=== PATIENT | female | born 1960 | race Two or more races ===

== ENCOUNTER 2019-11-20 13:36 | Outpatient (CLI) | payer OTHER ==
[~2019-11-20] VITALS: Ht 157.5 cm; Wt 57.2 kg
[2019-11-20 14:00] VITALS: BP 125/65
--- NOTE | 2019-11-20 18:15 | Consultation ---
DATE OF CONSULTATION: 11/20/2019 GASTROENTEROLOGY CONSULTATION CONSULTING PHYSICIAN: Wagner Gregory M.D. REFERRING PHYSICIAN: Dwayne Maurer M.D. TIME OF EVALUATION: 1400. HISTORY OF PRESENT ILLNESS: This is a 59-year-old female patient with a past medical history of bradycardia presents today with complaint of right lower quadrant pain. The patient denies any constipation or diarrhea. The patient denies any nausea or vomiting. The patient stated that she has a family history of colon cancer in which her brother was recently diagnosed with colon cancer stage IV and currently on chemotherapy. She was instructed by her primary care physician to obtain a routine colonoscopy because of this. The patient is alert and oriented x4. There are no signs of abuse or neglect. The patient is not a fall risk. The patient's last colonoscopy was stated to be approximately 5 years ago. PAST MEDICAL HISTORY: Bradycardia. PAST SURGICAL HISTORY: Cholecystectomy. MEDICATIONS: The patient is on vitamin D3, Q10, . FAMILY HISTORY: Brother has colon cancer. Family history of stroke. SOCIAL HISTORY: The patient has no ETOH use, tobacco, or drug use. PHYSICAL EXAMINATION: VITAL SIGNS: Temperature is 97.4, blood pressure 125/65, pulse 54, oxygen saturation is 98, height 5 feet 2 inches, weight 126.4 pounds. The patient denies any weight loss. GENERAL: No apparent distress. Alert and oriented x4. Ambulatory. HEENT: Head is normocephalic, atraumatic. PERRLA. NECK: Supple. CARDIOVASCULAR: Bradycardic. LUNGS: Clear bilaterally to auscultation. No apparent distress. ABDOMEN: Soft. Mild tenderness right lower quadrant. Nondistended. No rebound or guarding noted. EXTREMITIES: No pedal edema noted. No cyanosis. No clubbing noted. ASSESSMENT: This is a 59-year-old female patient with family history of colon cancer who presents today for a routine colonoscopy. 1. Family history of colon cancer. 2. Abdominal pain. 3. History of cholecystectomy. 4. Bradycardia. PLAN: Plan is to schedule the patient for colonoscopy. The patient will require prior authorization prior scheduling. Colonoscopy preparation and prepping was instructed and acknowledged by the patient. We will contact the patient in regards to the colonoscopy once authorization is approved. I would like to thank Dr. Maurer for this consultation. Wagner Gregory M.D. [facility] DR: KRIS JOB#: [id number] CC:
[2019-11-21] MEDS ORDERED: VITAMIN D-32000 UNI2 PO (08:20)
[2019-11-21] MEDS ORDERED: COQ-10100 M1 PO (08:20)
== END 2019-11-20 15:36 | disposition home or self-care (01) ==
LOC: PAN 13:36
DX: R10.9 Unspecified abdominal pain (principal); R00.1 Bradycardia, unspecified; Z90.49 Acquired absence of other specified parts of digestive tract; Z80.0 Family history of malignant neoplasm of digestive organs
CPT/HCPCS: G0463